=== PATIENT | female | born 1990 | race Caucasian/White ===

== ENCOUNTER 2017-11-25 12:44 | Outpatient (CLI) | payer OTHER ==
[2017-11-25] MEDS ORDERED: IOHEXOL 50 ML IV ONE (13:15)
[2017-11-25] MEDS ORDERED: IOHEXOL 0 ML IV ONE (13:15)
== END 2017-11-25 22:19 | disposition home or self-care (01) ==
LOC: SRD 12:44
PROVIDERS: ATTEND Specialist
PROC: BU08YZZ Plain Radiography of Uterus and Fallopian Tubes using Other Contrast (ICD-10-PCS; principal; 2017-11-25)
DX: N91.2 Amenorrhea, unspecified (principal)
CPT/HCPCS: 58340; 74740; C1751; Q9967